=== PATIENT | female | born 1975 | race Caucasian/White ===

== ENCOUNTER 2018-11-26 06:16 | Day surgery (SDC) | payer BC ==
[~2018-11-26 06:16] MED LIST: Buffered Lidocaine 1% SYRIN* 1 ML/SYRINGE INTRADERM ONE; ceFAZolin 2 GM PREMIX in ORs 2 GM/50 ML BAG IVPB ONE
[2018-11-26] MEDS ORDERED: Lidocain 1% EPI 1:100,000 * 30 ML MDV ONE (07:22)
[2018-11-26 08:28] VITALS: BP 135/80
--- NOTE | 2018-11-26 08:32 | BRIEFOPN ---
Brief Operative Note - Surgery Procedures: Procedures Pre-OP Diagnoses: Br ca Post-op Diagnosis: same Procedure: Insertion of powerport Surgeon: Dannielle Asst: none Anethesia: local EBL: minimal IVF: none Specimen: none Drains: none 8Fr single lumen power port via L SCV
--- NOTE | 2018-11-26 10:59 | OP ---
CC: Dr. Loree Ayers; [facility] * DATE OF OPERATION: 11/26/18 - SDS DATE OF : 77 SURGEON: Travis Spicer MD CANTEEN OPERATOR: None. ANESTHESIA: Local anesthesia. An 8-[place] PowerPort inserted via the left subclavian vein. PRE-OP DIAGNOSIS: Breast cancer. POST-OP DIAGNOSIS: Breast cancer. OPERATIVE PROCEDURE: Insertion of PowerPort. DESCRIPTION OF PROCEDURE: The patient was marked in the preoperative area. I discussed the case with her. She was taken to the operating room, placed on the operating table in supine position. Preoperative antibiotics were given. Sequential compression devices were placed on bilateral lower extremities. The patient's left chest and neck were then prepped and draped in standard surgical fashion. Time-out was performed. Injection of lidocaine infraclavicularly was carried out. We next accessed the left subclavian vein, inserted a wire and under fluoroscopy ensured its positioning. It did require a change of the wire to PTFE. Once we were sure of its positioning, an incision was made inferior to this. We made a pocket for the PowerPort and delivered the wire to this incision, where we dilated the vessel under fluoroscopy. We put the split-away catheter in and then the tubing through this. The split-away catheter was removed. The tubing was cut to size and attached to the pre-flushed PowerPort, which was dropped into the pocket and sutured laterally and medially with 0 Prolene sutures. The wound was then irrigated and reapproximated in a standard fashion, followed by Steri- Strips, sterile dressing. We did inject heparinized saline through the port at the end of the procedure. The patient tolerated the procedure well and was transferred to the PACU. [id number]/[facility] #: [id number] [facility]ITALVanessa
== END 2018-11-26 08:46 | disposition home or self-care (01) ==
LOC: OR 06:16
PROVIDERS: ATTEND Surgery
DX: C50.411 Malignant neoplasm of upper-outer quadrant of right female breast (principal)
CPT/HCPCS: 76000; J0690; J1642